=== PATIENT | female | born 1955 | race Caucasian/White ===

== ENCOUNTER 2017-06-16 11:29 | Inpatient (IN) | payer BC ==
[2017-06-16] MEDS ORDERED: Magnesium Hydroxide 400 MG/5 ML Susp 30 ML Cup PO PRN (13:11)
[2017-06-16] MEDS ORDERED: Sodium Chloride 0.9% 10 ML Syringe FLUSH PRN (13:11)
[2017-06-16] MEDS ORDERED: Ondansetron 4 MG/2 ML SDV IV PRN (13:11)
[2017-06-16] MEDS ORDERED: Acetaminophen 325 MG Tab PO PRN (13:11)
[2017-06-16] MEDS ORDERED: Warfarin 5 MG Tab PO ONE (13:22)
[2017-06-16] MEDS: Enoxaparin 80 MG/0.8 ML Syringe SUBCUT SCH (13:37)
[2017-06-16 14:03] LABS: CHLORIDE,CL 103 mEq/L (98-106); SODIUM,NA 142 mEq/L (136-145)
[2017-06-16] MEDS: Simvastatin 20 MG Tab PO SCH ×2 (20:05→20:07)
[2017-06-16] MEDS: Gabapentin 300 MG Cap PO SCH (20:05)
[2017-06-17] MEDS: Enoxaparin 80 MG/0.8 ML Syringe SUBCUT SCH ×3 (00:37→19:38)
[2017-06-17] MEDS: Pantoprazole 40 MG Tab.CR PO SCH (07:01)
[2017-06-17] MEDS ORDERED: CHLORTHALIDONE PO SCH (08:00)
[2017-06-17] MEDS ORDERED: [UNRECOGNIZED DRUG - OTHER] PO SCH (08:00)
[2017-06-17] MEDS ORDERED: ATENOLOL PO SCH (08:00)
[2017-06-17] MEDS: Aspirin 81 MG Tab.EC PO SCH (08:00)
[2017-06-17] MEDS: Potassium Chloride 10 MEQ Tab.ER PO SCH (08:01)
[2017-06-17] MEDS: Metoprolol Succinate 25 MG Tab.ER PO SCH (08:01)
[2017-06-17] MEDS: Cholecalciferol (Vitamin D3) 1,000 Unit Tab PO SCH (08:06)
[2017-06-17] MEDS: Gabapentin 300 MG Cap PO SCH ×2 (08:06→19:38)
[2017-06-17] MEDS: Calcium Carbonate/Vitamin D3 1250 MG-200 Unit Tab PO SCH (08:06)
[2017-06-17] MEDS: Chlorthalidone 25 MG Tab PO SCH (08:06)
[2017-06-17] MEDS: Atenolol 50 MG Tab PO SCH (08:06)
--- NOTE | 2017-06-17 09:43 | PN ---
DATE: 06/17/2017 S: Arron is in with a pulmonary emboli. O: NECK: Supple. CHEST: Clear. CARDIAC: Sounds are good. EXTREMITIES: I see no edema in her legs. ASSESSMENT: PULMONARY EMBOLI. P: Continue anticoagulation, mildly hypokalemic, will follow. ANABELLE/DARLENE /[id number]
[2017-06-17] MEDS: Warfarin 5 MG Tab PO SCH (11:54)
[2017-06-17] MEDS: Simvastatin 20 MG Tab PO SCH (19:38)
[2017-06-18] MEDS: Temazepam 15 MG Cap PO PRN ×2 (00:44→22:47)
[2017-06-18] MEDS: Pantoprazole 40 MG Tab.CR PO SCH (06:28)
[2017-06-18 07:38] LABS: CHLORIDE,CL 104 mEq/L (98-106); SODIUM,NA 143 mEq/L (136-145)
[2017-06-18] MEDS: Chlorthalidone 25 MG Tab PO SCH (08:28)
[2017-06-18] MEDS: Calcium Carbonate/Vitamin D3 1250 MG-200 Unit Tab PO SCH (08:28)
[2017-06-18] MEDS: Aspirin 81 MG Tab.EC PO SCH (08:28)
[2017-06-18] MEDS: Enoxaparin 80 MG/0.8 ML Syringe SUBCUT SCH ×2 (08:28→20:07)
[2017-06-18] MEDS: Potassium Chloride 10 MEQ Tab.ER PO SCH (08:28)
[2017-06-18] MEDS: Gabapentin 300 MG Cap PO SCH ×2 (08:29→20:08)
[2017-06-18] MEDS: Atenolol 50 MG Tab PO SCH (08:30)
[2017-06-18] MEDS: Metoprolol Succinate 25 MG Tab.ER PO SCH (08:30)
[2017-06-18] MEDS: Cholecalciferol (Vitamin D3) 1,000 Unit Tab PO SCH (08:30)
[2017-06-18] MEDS: Warfarin 5 MG Tab PO SCH (12:32)
[2017-06-18] MEDS: Simvastatin 20 MG Tab PO SCH (20:08)
--- NOTE | 2017-06-18 20:43 | PCM.PN ---
- General Info Date of Service: 06/18/17 Admission Dx/Problem (Free Text): PE Functional Status: Reports: Pain Controlled, Tolerating Diet, Ambulating - Review of Systems General: Denies: Fever, Weakness, Fatigue HEENT: Denies: Ear Pain, Sinus Congestion, Rhinitis Pulmonary: Denies: Shortness of Breath, Cough, Wheezing Cardiovascular: Denies: Chest Pain, Palpitations, Edema, Lightheadedness Gastrointestinal: Reports: No Symptoms Genitourinary: Reports: No Symptoms Musculoskeletal: Reports: No Symptoms Skin: Reports: No Symptoms Neurological: Reports: No Symptoms Psychiatric: Reports: No Symptoms - Patient Data Vitals - Most Recent: Last Vital Signs Temp 97.4 F 06/18/17 16:00 Pulse 93 06/18/17 16:00 Resp 20 06/18/17 16:00 BP 114/63 06/18/17 16:00 Pulse Ox 95 06/18/17 16:00 Weight - Most Recent: 208 lb 8.917 oz Lab Results Last 24 Hours: Laboratory Results - last 24 hr 06/18/17 06/18/17 Range/Units 07:15 07:15 PT 12.3 (9.7-12.3) SEC INR 1.13 (0.92-1.18) Sodium 143 (136-145) mEq/L Potassium 3.3 L (3.5-5.0) mEq/L Chloride 104 (98-106) mEq/L Carbon Dioxide 31 (21-32) mmol/L BUN 18 (7-18) mg/dL Creatinine 0.8 (0.6-1.0) mg/dL Est Cr Clr Drug Dosing 62.15 mL/min Estimated GFR (MDRD) > 60 (>=60) mL/min Glucose 131 H (75-99) mg/dL Calcium 9.1 (8.4-10.1) mg/dL Med Orders - Current: Current Medications Acetaminophen (Tylenol) 650 mg PO Q4H PRN PRN Reason: Pain (Mild 1-3)/fever Aspirin (Halfprin) 81 mg PO DAILY [facility] Last Admin: 06/18/17 08:28 Dose: 81 mg Atenolol (Tenormin) 50 mg PO DAILY [facility] Last Admin: 06/18/17 08:30 Dose: 50 mg Calcium Carbonate (Calcium Carbonate/Vitamin D 1250 Mg-200 Unit) 1 tab PO DAILY [facility] Last Admin: 06/18/17 08:28 Dose: 1 tab Chlorthalidone (Chlorthalidone) 25 mg PO DAILY [facility] Last Admin: 06/18/17 08:28 Dose: 25 mg Cholecalciferol (Vitamin D3) 2,000 units PO DAILY [facility] Last Admin: 06/18/17 08:30 Dose: 2,000 units Enoxaparin Sodium (Lovenox) 80 mg SUBCUT Q12H [facility] Last Admin: 06/18/17 20:07 Dose: 80 mg Gabapentin (Neurontin) 300 mg PO DAILY [facility] Last Admin: 06/18/17 08:29 Dose: 300 mg Gabapentin (Neurontin) 600 mg PO BEDTIME [facility] Last Admin: 06/18/17 20:08 Dose: 600 mg Magnesium Hydroxide (Milk Of Magnesia) 30 ml PO Q12H PRN PRN Reason: Constipation Magnesium Oxide (Magnesium Oxide) 500 mg PO DAILY [facility] Last Admin: 06/18/17 08:29 Dose: 500 mg Metoprolol Succinate (Toprol Xl) 50 mg PO DAILY [facility] Last Admin: 06/18/17 08:30 Dose: 50 mg Ondansetron HCl (Zofran) 4 mg IV Q6H PRN PRN Reason: Nausea/Vomiting Pantoprazole Sodium (Protonix) 40 mg PO 0700 [facility] Last Admin: 06/18/17 06:28 Dose: 40 mg Potassium Chloride (Klor-Con 10) 40 meq PO DAILY [facility] Last Admin: 06/18/17 08:28 Dose: 40 meq Simvastatin (Zocor) 20 mg PO BEDTIME [facility] Last Admin: 06/18/17 20:08 Dose: 20 mg Sodium Chloride (Saline Flush) 10 ml FLUSH ASDIRECTED PRN PRN Reason: Keep Vein Open Temazepam (Restoril) 15 mg PO BEDTIME PRN PRN Reason: Sleep Last Admin: 06/18/17 00:44 Dose: 15 mg Warfarin Sodium (Coumadin) 10 mg PO 1200 [facility] Last Admin: 06/18/17 12:32 Dose: 10 mg Discontinued Medications Enoxaparin Sodium (Lovenox) 80 mg SUBCUT 0000,1300 [facility] Stop: 06/17/17 01:00 Last Admin: 06/17/17 00:37 Dose: 80 mg Warfarin Sodium (Coumadin) 10 mg PO ONETIME ONE Stop: 06/16/17 13:23 Last Admin: 06/16/17 13:28 Dose: 10 mg - Exam General: Alert, Oriented HEENT: Mucous Membr. Moist/[place] Neck: Supple Lungs: Clear to Auscultation, Normal Respiratory Effort Cardiovascular: Regular Rate, Regular Rhythm GI/Abdominal Exam: Normal Bowel Sounds, Soft, Non-Tender Extremities: Normal Inspection, No Pedal Edema Skin: Warm, Dry Neurological: No New Focal Deficit - Problem List & Annotations (1) Pulmonary embolism SNOMED Code(s): 02298308 Code(s): I26.99 - OTHER PULMONARY EMBOLISM WITHOUT ACUTE COR PULMONALE Status: Acute Priority: High Current Visit: Yes Qualifiers: Chronicity: acute Acute cor pulmonale presence: without acute cor pulmonale - Problem List Review Problem List Initiated/Reviewed/Updated: Yes - My Orders Last 24 Hours: My Active Orders 06/19/17 05:11 BASIC METABOLIC PANEL,BMP [CHEM] AM - Assessment Assessment:: PE - Plan Plan:: Patient doing well. Denies shortness of breath or chest discomfort. Has been ambulating without difficulty. Does relate that over the last month or so, she has had a tightness in her chest but had contributed that to scarring from her previous treatments for lymphoma and the weather changes. That discomfort has improved now but also admits she hasn't been very active since admission. Appetite has been good. Afebrile. Telemetry shows NSR. Blood pressure WNL. Will continue with daily INR with Lovenox until therapeutic on Coumadin. Discharge when INR therapeutic.
[2017-06-19] MEDS: Pantoprazole 40 MG Tab.CR PO SCH (06:14)
[2017-06-19 07:29] LABS: CHLORIDE,CL 104 mEq/L (98-106); SODIUM,NA 142 mEq/L (136-145)
[2017-06-19] MEDS: Cholecalciferol (Vitamin D3) 1,000 Unit Tab PO SCH (07:32)
[2017-06-19] MEDS: Enoxaparin 80 MG/0.8 ML Syringe SUBCUT SCH ×2 (07:32→20:08)
[2017-06-19] MEDS: Potassium Chloride 10 MEQ Tab.ER PO SCH (07:32)
[2017-06-19] MEDS: Metoprolol Succinate 25 MG Tab.ER PO SCH (07:33)
[2017-06-19] MEDS: Chlorthalidone 25 MG Tab PO SCH (07:37)
[2017-06-19] MEDS: Calcium Carbonate/Vitamin D3 1250 MG-200 Unit Tab PO SCH (07:37)
[2017-06-19] MEDS: Aspirin 81 MG Tab.EC PO SCH (07:38)
[2017-06-19] MEDS: Atenolol 50 MG Tab PO SCH (07:38)
[2017-06-19] MEDS: Gabapentin 300 MG Cap PO SCH ×2 (07:38→20:08)
--- NOTE | 2017-06-19 10:51 | PCM.PN ---
- General Info Date of Service: 06/19/17 Admission Dx/Problem (Free Text): PE Functional Status: Reports: Pain Controlled, Tolerating Diet, Ambulating - Review of Systems General: Denies: Fever, Weakness, Fatigue HEENT: Reports: No Symptoms Pulmonary: Denies: Shortness of Breath, Cough Cardiovascular: Denies: Chest Pain, Edema, Lightheadedness Gastrointestinal: Denies: Abdominal Pain, Nausea, Vomiting Genitourinary: Reports: No Symptoms Musculoskeletal: Reports: No Symptoms Skin: Reports: No Symptoms Neurological: Reports: No Symptoms - Patient Data Vitals - Most Recent: Last Vital Signs Temp 96.2 F 06/19/17 08:00 Pulse 98 06/19/17 08:00 Resp 16 06/19/17 08:00 BP 138/78 06/19/17 08:00 Pulse Ox 94 L 06/19/17 08:00 Weight - Most Recent: 208 lb 8.917 oz Lab Results Last 24 Hours: Laboratory Results - last 24 hr 06/19/17 06/19/17 Range/Units 06:55 06:55 PT 15.4 H (9.7-12.3) SEC INR 1.41 H (0.92-1.18) Sodium 142 (136-145) mEq/L Potassium 3.4 L (3.5-5.0) mEq/L Chloride 104 (98-106) mEq/L Carbon Dioxide 30 (21-32) mmol/L BUN 16 (7-18) mg/dL Creatinine 0.7 (0.6-1.0) mg/dL Est Cr Clr Drug Dosing 71.03 mL/min Estimated GFR (MDRD) > 60 (>=60) mL/min Glucose 124 H (75-99) mg/dL Calcium 8.8 (8.4-10.1) mg/dL Med Orders - Current: Current Medications Acetaminophen (Tylenol) 650 mg PO Q4H PRN PRN Reason: Pain (Mild 1-3)/fever Aspirin (Halfprin) 81 mg PO DAILY [facility] Last Admin: 06/19/17 07:38 Dose: 81 mg Atenolol (Tenormin) 50 mg PO DAILY [facility] Last Admin: 06/19/17 07:38 Dose: 50 mg Calcium Carbonate (Calcium Carbonate/Vitamin D 1250 Mg-200 Unit) 1 tab PO DAILY [facility] Last Admin: 06/19/17 07:37 Dose: 1 tab Chlorthalidone (Chlorthalidone) 25 mg PO DAILY [facility] Last Admin: 06/19/17 07:37 Dose: 25 mg Cholecalciferol (Vitamin D3) 2,000 units PO DAILY [facility] Last Admin: 06/19/17 07:32 Dose: 2,000 units Enoxaparin Sodium (Lovenox) 80 mg SUBCUT Q12H [facility] Last Admin: 06/19/17 07:32 Dose: 80 mg Gabapentin (Neurontin) 300 mg PO DAILY [facility] Last Admin: 06/19/17 07:38 Dose: 300 mg Gabapentin (Neurontin) 600 mg PO BEDTIME [facility] Last Admin: 06/18/17 20:08 Dose: 600 mg Magnesium Hydroxide (Milk Of Magnesia) 30 ml PO Q12H PRN PRN Reason: Constipation Magnesium Oxide (Magnesium Oxide) 500 mg PO DAILY [facility] Last Admin: 06/19/17 07:32 Dose: 500 mg Metoprolol Succinate (Toprol Xl) 50 mg PO DAILY [facility] Last Admin: 06/19/17 07:33 Dose: 50 mg Ondansetron HCl (Zofran) 4 mg IV Q6H PRN PRN Reason: Nausea/Vomiting Pantoprazole Sodium (Protonix) 40 mg PO 0700 [facility] Last Admin: 06/19/17 06:14 Dose: 40 mg Potassium Chloride (Klor-Con 10) 40 meq PO DAILY [facility] Last Admin: 06/19/17 07:32 Dose: 40 meq Simvastatin (Zocor) 20 mg PO BEDTIME [facility] Last Admin: 06/18/17 20:08 Dose: 20 mg Sodium Chloride (Saline Flush) 10 ml FLUSH ASDIRECTED PRN PRN Reason: Keep Vein Open Temazepam (Restoril) 15 mg PO BEDTIME PRN PRN Reason: Sleep Last Admin: 06/18/17 22:47 Dose: 15 mg Warfarin Sodium (Coumadin) 10 mg PO 1200 [facility] Last Admin: 06/18/17 12:32 Dose: 10 mg Discontinued Medications Enoxaparin Sodium (Lovenox) 80 mg SUBCUT 0000,1300 [facility] Stop: 06/17/17 01:00 Last Admin: 06/17/17 00:37 Dose: 80 mg Warfarin Sodium (Coumadin) 10 mg PO ONETIME ONE Stop: 06/16/17 13:23 Last Admin: 06/16/17 13:28 Dose: 10 mg - Exam General: Alert, Oriented HEENT: Mucous Membr. Moist/[place] Neck: Supple Lungs: Clear to Auscultation, Normal Respiratory Effort Cardiovascular: Regular Rate, Regular Rhythm GI/Abdominal Exam: Normal Bowel Sounds, Soft, Non-Tender Extremities: Normal Inspection, No Pedal Edema Skin: Warm, Dry Neurological: No New Focal Deficit - Problem List & Annotations (1) Pulmonary embolism SNOMED Code(s): 19333299 Code(s): I26.99 - OTHER PULMONARY EMBOLISM WITHOUT ACUTE COR PULMONALE Status: Acute Priority: High Current Visit: Yes Qualifiers: Chronicity: acute Acute cor pulmonale presence: without acute cor pulmonale - Problem List Review Problem List Initiated/Reviewed/Updated: Yes - Assessment Assessment:: PE - Plan Plan:: Patient doing well. Denies shortness of breath or chest discomfort. Has been ambulating without difficulty. Does relate that over the last month or so, she has had a tightness in her chest but had contributed that to scarring from her previous treatments for lymphoma and the weather changes. That discomfort has improved now but also admits she hasn't been very active since admission. Appetite has been good. Afebrile. Telemetry shows NSR. Blood pressure WNL. Will continue with daily INR with Lovenox until therapeutic on Coumadin. Discharge when INR therapeutic. 06-19-2017 Patient stable. Ambulating about without difficulty. Denies shortness of breath and chest pain. Appetite good. Vitals stable. INR today 1.41. continue with 10 mg of Coumadin today. Possibly discharge home tomorrow if INR therapeutic.
[2017-06-19] MEDS: Warfarin 5 MG Tab PO SCH (11:51)
[2017-06-19] MEDS: Temazepam 15 MG Cap PO PRN (20:09)
[2017-06-19] MEDS: Simvastatin 20 MG Tab PO SCH (20:09)
[2017-06-20] MEDS: Pantoprazole 40 MG Tab.CR PO SCH (06:10)
--- NOTE | 2017-06-20 08:11 | PCM.DCSUM1 ---
Discharge Summary - Hospital Course HPI Initial Comments: Lesly Orellana is a 62 year old female who was admitted to the hospital from the clinic on 06/16/2017 for a Right Pulmonary Embolism. Throughout hospital stay she was bridged with lovenox until her INR was therapeutic. Her INR on admission was 0.98. She was dosed 10 mg Coumadin daily. Her INR was 0.96 on the 1st, 1.13 on the 2nd, and 1.41 on the 3rd. On the day of discharge her INR was therpeutic at 2.08. She will be discharged home on 5 mg Coumadin daily. She will follow up in the clinic with Dr. Justin on 06/22/2017, with lab work for INR prior to visit. - Discharge Data Discharge Date: 06/20/17 Discharge Disposition: Home, Self-Care 01 Condition: Good - Discharge Diagnosis/Problem(s) (1) Pulmonary embolism on right SNOMED Code(s): 43624987 ICD Code: I26.99 - OTHER PULMONARY EMBOLISM WITHOUT ACUTE COR PULMONALE Status: Acute Priority: High Current Visit: Yes - Patient Instructions Diet: Usual Diet as Tolerated (avoid foods high in vitmain K) Activity: As Tolerated Notify Provider of: Fever, Increased Pain, Nausea and/or Vomiting - Discharge Plan Prescriptions/Med Rec: Warfarin [Coumadin] 5 mg PO 1200 30 Days #30 tablet Home Medications: Home Meds Atenolol/Chlorthalidone [Atenolol-Chlorthalidone 50-25] 1 tab PO DAILY 07/02/13 [History] Cholecalciferol (Vitamin D3) [Vitamin D3] 2,000 unit PO DAILY 07/02/13 [History] Gabapentin 300 mg PO DAILY 07/02/13 [History] Magnesium 500 mg PO DAILY 07/02/13 [History] Metoprolol Succinate [Toprol XL] 50 mg PO DAILY 07/02/13 [History] Pantoprazole Sodium 40 mg PO DAILY 07/02/13 [History] Potassium Chloride 40 meq PO DAILY 07/02/13 [History] Simvastatin 20 mg PO DAILY 07/02/13 [History] Gabapentin 600 mg PO BEDTIME 08/14/13 [History] Calcium Carbonate/Vitamin D3 [Calcium 600 + Vit D Tablet] 1 each PO DAILY [History] Aspirin [Adult Low Dose Aspirin EC] 81 mg PO DAILY 06/16/17 [History] Warfarin [Coumadin] 5 mg PO 1200 30 Days #30 tablet 06/20/17 [Rx] Patient Handouts: Warfarin: What You Need to Know, Pulmonary Embolism Referrals: David Justin MD [Primary Care Provider] - - Discharge Summary/Plan Comment Discharge Summary/Plan Comment: Coumadin 5 mg PO daily Follow up in clinic with Dr. Justin on Tuesday. Will check INR prior to that. - General Info Date of Service: 06/20/17 Admission Dx/Problem (Free Text: Right Pulmonary Embolism Subjective Update: Patient reports she has been feeling well. Does report some shortness of breath with exertion. Denies shortness of breath at rest, cough, or chest pain. Reports she has been up walking in the halls throughout her stay without difficulty. Does not have any concerns today and feels ready to discharge home. Functional Status: Reports: Pain Controlled, Tolerating Diet, Ambulating, Urinating. Denies: New Symptoms - Review of Systems General: Reports: No Symptoms. Denies: Fever, Weakness, Fatigue, Chills HEENT: Reports: Sinus Congestion Cardiovascular: Reports: Dyspnea on Exertion. Denies: Chest Pain, Palpitations , Edema, Lightheadedness Gastrointestinal: Reports: No Symptoms. Denies: Abdominal Pain, Constipation, Decreased Appetite, Diarrhea, Hematochezia, Melena, Nausea, Vomiting Genitourinary: Reports: No Symptoms Musculoskeletal: Reports: No Symptoms Skin: Reports: No Symptoms Neurological: Reports: No Symptoms Psychiatric: Reports: No Symptoms - Patient Data Vitals - Most Recent: Last Vital Signs Temp 98.3 F 06/20/17 00:00 Pulse 57 L 06/20/17 00:00 Resp 16 06/20/17 00:00 BP 115/73 06/20/17 00:00 Pulse Ox 93 L 06/20/17 00:00 Weight - Most Recent: 208 lb 8.917 oz Lab Results - Last 24 hrs: Laboratory Results - last 24 hr 06/20/17 Range/Units 07:10 PT 23.0 H (9.7-12.3) SEC INR 2.08 H (0.92-1.18) Med Orders - Current: Current Medications Acetaminophen (Tylenol) 650 mg PO Q4H PRN PRN Reason: Pain (Mild 1-3)/fever Aspirin (Halfprin) 81 mg PO DAILY [facility] Last Admin: 06/19/17 07:38 Dose: 81 mg Atenolol (Tenormin) 50 mg PO DAILY [facility] Last Admin: 06/19/17 07:38 Dose: 50 mg Calcium Carbonate (Calcium Carbonate/Vitamin D 1250 Mg-200 Unit) 1 tab PO DAILY [facility] Last Admin: 06/19/17 07:37 Dose: 1 tab Chlorthalidone (Chlorthalidone) 25 mg PO DAILY [facility] Last Admin: 06/19/17 07:37 Dose: 25 mg Cholecalciferol (Vitamin D3) 2,000 units PO DAILY [facility] Last Admin: 06/19/17 07:32 Dose: 2,000 units Enoxaparin Sodium (Lovenox) 80 mg SUBCUT Q12H [facility] Last Admin: 06/19/17 20:08 Dose: 80 mg Gabapentin (Neurontin) 300 mg PO DAILY [facility] Last Admin: 06/19/17 07:38 Dose: 300 mg Gabapentin (Neurontin) 600 mg PO BEDTIME [facility] Last Admin: 06/19/17 20:08 Dose: 600 mg Magnesium Hydroxide (Milk Of Magnesia) 30 ml PO Q12H PRN PRN Reason: Constipation Magnesium Oxide (Magnesium Oxide) 500 mg PO DAILY [facility] Last Admin: 06/19/17 07:32 Dose: 500 mg Metoprolol Succinate (Toprol Xl) 50 mg PO DAILY [facility] Last Admin: 06/19/17 07:33 Dose: 50 mg Ondansetron HCl (Zofran) 4 mg IV Q6H PRN PRN Reason: Nausea/Vomiting Pantoprazole Sodium (Protonix) 40 mg PO 0700 [facility] Last Admin: 06/20/17 06:10 Dose: 40 mg Potassium Chloride (Klor-Con 10) 40 meq PO DAILY [facility] Last Admin: 06/19/17 07:32 Dose: 40 meq Simvastatin (Zocor) 20 mg PO BEDTIME [facility] Last Admin: 06/19/17 20:09 Dose: 20 mg Sodium Chloride (Saline Flush) 10 ml FLUSH ASDIRECTED PRN PRN Reason: Keep Vein Open Temazepam (Restoril) 15 mg PO BEDTIME PRN PRN Reason: Sleep Last Admin: 06/19/17 20:09 Dose: 15 mg Warfarin Sodium (Coumadin) 10 mg PO 1200 [facility] Last Admin: 06/19/17 11:51 Dose: 10 mg Discontinued Medications Enoxaparin Sodium (Lovenox) 80 mg SUBCUT 0000,1300 [facility] Stop: 06/17/17 01:00 Last Admin: 06/17/17 00:37 Dose: 80 mg Warfarin Sodium (Coumadin) 10 mg PO ONETIME ONE Stop: 06/16/17 13:23 Last Admin: 06/16/17 13:28 Dose: 10 mg - Exam Quality Assessment: Reports: DVT Prophylaxis General: Reports: Alert, Oriented, No Acute Distress Neck: Reports: Supple Lungs: Reports: Clear to Auscultation, Normal Respiratory Effort. Denies: Decreased Breath Sounds, Crackles, Rales, Rhonchi, Wheezing Cardiovascular: Reports: Regular Rate, Regular Rhythm GI/Abdominal Exam: Normal Bowel Sounds, Soft, Non-Tender, No Organomegaly, No Distention, No Abnormal Bruit, No Mass, Pelvis Stable Extremities: Normal Inspection, Normal Range of Motion, Non-Tender, No Pedal Edema, Normal Capillary Refill Skin: Reports: Warm, Dry, Intact Neurological: Reports: No New Focal Deficit Psy/Mental Status: Reports: Alert, Normal Affect, Normal Mood *Q Meaningful Use (DIS) - VTE *Q VTE Criteria *Q: - Stroke *Q Stroke Criteria *Q: - AMI *Q AMI Criteria *Q:
[2017-06-20] MEDS: Potassium Chloride 10 MEQ Tab.ER PO SCH (08:27)
[2017-06-20] MEDS: Enoxaparin 80 MG/0.8 ML Syringe SUBCUT SCH (08:27)
[2017-06-20] MEDS: Cholecalciferol (Vitamin D3) 1,000 Unit Tab PO SCH (08:28)
[2017-06-20] MEDS: Gabapentin 300 MG Cap PO SCH (08:28)
[2017-06-20] MEDS: Chlorthalidone 25 MG Tab PO SCH (08:29)
[2017-06-20] MEDS: Aspirin 81 MG Tab.EC PO SCH (08:29)
[2017-06-20] MEDS: Calcium Carbonate/Vitamin D3 1250 MG-200 Unit Tab PO SCH (08:30)
[2017-06-20] MEDS: Metoprolol Succinate 25 MG Tab.ER PO SCH (08:30)
[2017-06-20] MEDS: Atenolol 50 MG Tab PO SCH (08:31)
== END 2017-06-20 09:40 | disposition home or self-care (01) | DRG 134 ==
LOC: CC.MS 11:29 → UNDOADMIN 11:29 → CC.MS 13:11
PROVIDERS: ADMIT General Practice; ATTEND General Practice
DX: I26.99 Other pulmonary embolism without acute cor pulmonale (principal); M19.90 Unspecified osteoarthritis, unspecified site; E78.5 Hyperlipidemia, unspecified; I10 Essential (primary) hypertension; C85.90 Non-Hodgkin lymphoma, unspecified, unspecified site; R53.83 Other fatigue; Z82.49 Family history of ischemic heart disease and other diseases of the circulatory system; Z88.1 Allergy status to other antibiotic agents; Z88.8 Allergy status to other drugs, medicaments and biological substances; Z79.82 Long term (current) use of aspirin; Z79.899 Other long term (current) drug therapy
CPT/HCPCS: 36415; 80048; 80053; 81001; 83735; 84443; 85025; 85610; 85651; 86140; 93005; A9270-GY; G0365; J1650

== ENCOUNTER → 2020-10-24 | Day surgery (SDC) | payer MEDICARE, BC ==
[~2020-10-24] MED LIST: Lactated Ringers 1,000 ML IV SCH
--- NOTE | 2020-10-24 10:45 | OR ---
DATE OF OPERATION: 10/24/2020 PREOPERATIVE DIAGNOSIS: HEME-POSITIVE STOOL. POSTOPERATIVE DIAGNOSIS: HEME-POSITIVE STOOL. SURGEON: Kostas Kim MD PROCEDURE: DIAGNOSTIC COLONOSCOPY. ANESTHESIA: MAC. COMPLICATIONS: None. SPECIMEN: None. FINDINGS: 1. Full-length colonoscopy. 2. [place] diverticulosis, mild. 3. Internal hemorrhoids, significant. RECOMMENDATIONS: Routine colonoscopy every 10 years if provider deems necessary EGD given her heme-positive stool. INDICATIONS: The patient was in for routine physical. She was not anemic, but was found to have heme-positive stool. Melyssa Warner sent her for diagnostic colonoscopy. DESCRIPTION OF PROCEDURE: The patient was prepped and draped, placed in the left lateral decubitus position. A lubricated Olympus colonoscope was inserted and with ease advanced to the cecum. Direct visualization of the ileocecal valve and appendiceal orifice was accomplished. The bowel prep was excellent. Upon withdrawal of the scope, throughout the entire length of the colon, I could find no polyps, masses, ulceration, or bleeding sites. There were no vascular abnormalities or signs of colitis. No identifiable bleeding sites. The patient does have guadalupe diverticular disease, very mild, however. No inflammatory changes associated with this. The rectal vault was benign, although the patient had significant vascular tissue in the whole rectum. Upon retroflexion, the perianal region has a lot of internal hemorrhoids, but not inflamed. Air was then suctioned and the scope removed without complication. VALERIE/DARLENE /[id number]
== END ==
LOC: CC.SDS 09:01
PROVIDERS: ATTEND Family Medicine
DX: K57.30 Diverticulosis of large intestine without perforation or abscess without bleeding (principal); K64.8 Other hemorrhoids; K21.9 Gastro-esophageal reflux disease without esophagitis; E78.5 Hyperlipidemia, unspecified; I10 Essential (primary) hypertension; E55.9 Vitamin D deficiency, unspecified; E53.8 Deficiency of other specified B group vitamins; I35.8 Other nonrheumatic aortic valve disorders; Z88.8 Allergy status to other drugs, medicaments and biological substances; Z88.1 Allergy status to other antibiotic agents; Z79.82 Long term (current) use of aspirin; Z79.899 Other long term (current) drug therapy; Z79.01 Long term (current) use of anticoagulants; Z98.890 Other specified postprocedural states
CPT/HCPCS: 00811; 36415; 45378; 85610; J7120